=== PATIENT | male | born 1985 | race Caucasian/White ===

== ENCOUNTER 2019-07-09 06:37 | Day surgery (SDC) | payer BC ==
[2019-07-09] MEDS ORDERED: Sodium Chloride 0.9% 1,000 ML IV SCH (07:15)
[2019-07-09] MEDS ORDERED: Propofol 200 MG/20 ML SDV ONE ×2 (07:25→07:53)
[2019-07-09] MEDS ORDERED: Midazolam 1 MG/ML 2 ML SDV ONE (07:25)
[2019-07-09] MEDS ORDERED: fentaNYL 100 MCG/2 ML SDV ONE (07:25)
--- NOTE | 2019-07-09 10:06 | OR ---
DATE OF PROCEDURE: SURGEON: Jai Morris MD PROCEDURE: Colonoscopy with removal of transverse colon polyp using hot snare wire device. FINDINGS: Transverse colon polyp, approximately 5 mm, completely removed using cold biopsy forceps. COMPLICATIONS: None. PLUNGER SCOOP OPERATOR: None. PREOPERATIVE DIAGNOSIS: Abdominal pain. POSTOPERATIVE DIAGNOSIS: Abdominal pain. RISKS: Risks, benefits, alternatives, and limitations including, but not limited to infection, bleeding, and perforation were explained to the patient who wished to proceed. PROCEDURE IN DETAIL: The patient was placed in left lateral decubitus position. Digital rectal exam was performed without abnormality. Scope was introduced and advanced atraumatically to the ileocecal valve. Scope was brought back to the ascending, transverse, descending colon, and retroflexed. No evidence of old or new blood. The aforementioned polyp was identified and completely removed. No etiology for the abdominal pain. No abnormalities on retroflexion. No evidence of colitis. No diverticulosis. The patient tolerated the procedure well. Jai Morris MD /[id number]
--- NOTE | 2019-08-02 10:28 | OR ---
DATE OF PROCEDURE: 07/09/2019 SURGEON: Jai Morris MD ADDENDUM: Operative report on 07/09/2019. Of note, the transverse colon polyp, which was 5 mm was completely removed using hot snare wire device. This was completely removed and no abnormal bleeding was noted after this. Jai Morris MD /[id number]
== END 2019-07-09 09:30 | disposition home or self-care (01) ==
LOC: JP.SDS 06:37
PROVIDERS: ATTEND Surgery
DX: D12.3 Benign neoplasm of transverse colon (principal)
CPT/HCPCS: 45385; 88305; J2250; J2704; J3010; J7030

== ENCOUNTER 2022-04-07 21:16 | Emergency (ER) | payer BC, MEDICAID ==
[2022-04-07 22:23] LABS: ESTIMATED GFR 111 mL/min (>60)
[2022-04-07 22:24] LABS: TROPONIN I HIGH SENSITIVITY < 4.0 pg/mL (<=60.3)
== END 2022-04-07 22:54 | disposition home or self-care (01) ==
LOC: JP.ED 21:16
DX: R07.89 Other chest pain (principal)
CPT/HCPCS: 36415; 71046; 71046-26; 80053; 84484; 85025; 93005; 93010; 99282; 99285

== ENCOUNTER 2024-05-01 08:35 | Observation (INO) | payer MEDICAID ==
[2024-05-01 09:31] LABS: BASOPHILS ABSOLUTE AUTO 0.05 K/uL (0.00-0.10); BASOPHILS PERCENT AUTO 0.5 % (0.1-1.3); EOSINOPHILS ABSOLUTE AUTO 0.06 K/uL (0.00-0.40); EOSINOPHILS PERCENT AUTO 0.6 % (0.0-5.4); HEMATOCRIT 45.9 % (38.4-49.7); HEMOGLOBIN 15.4 g/dL (12.9-16.9); IMMATURE GRAN ABSOLUTE AUTO 0.04 K/uL (0.00-0.23); IMMATURE GRAN PERCENT AUTO 0.4 % (0.0-0.7); LYMPHOCYTES ABSOLUTE AUTO 1.15 K/uL (0.8-3.3); LYMPHOCYTES PERCENT AUTO 10.9 % (11.4-47.7); MEAN CORPUSCULAR HEMOGLOBIN 29.8 pg (31.6-35.5); MEAN CORPUSCULAR HGB CONC 33.6 g/dL (31.6-35.5); MONOCYTES ABSOLUTE AUTO 0.87 K/uL (0.20-0.90); MONOCYTES PERCENT AUTO 8.2 % (3.3-12.6); NEUTROPHILS PERCENT AUTO 79.4 % (40.0-78.1); PLATELET COUNT,PLT 266 K/uL (130-375); RED BLOOD CELL COUNT 5.16 M/uL (4.14-5.76); WHITE BLOOD CELL COUNT,WBC 10.6 K/uL (3.2-11.0)
[2024-05-01 09:39] LABS: APPEARANCE,URINE CLEAR (CLEAR); BILIRUBIN,URINE NEGATIVE (NEGATIVE); COLOR,URINE YELLOW (YELLOW); GLUCOSE,URINE NEGATIVE (NEGATIVE); KETONES,URINE 15 mg/dL (NEGATIVE); LEUKOCYTE ESTERASE,URINE NEGATIVE (NEGATIVE); NITRITE,URINE NEGATIVE (NEGATIVE); OCCULT BLOOD,URINE TRACE-INTACT (NEGATIVE); PH,URINE 5.5 (5.0-8.0); PROTEIN,URINE NEGATIVE (NEGATIVE); UROBILINOGEN,URINE 0.2 EU/dL (0.2-1.0)
[2024-05-01 09:45] LABS: AMORPHOUS SEDIMENT,URINE NOT SEEN; BACTERIA,URINE NOT SEEN; EPITHELIAL CELLS,URINE NOT SEEN; MUCUS,URINE MODERATE; RBC,URINE 0-5 (0-5); WBC,URINE 0-5 (0-5)
[2024-05-01 09:51] LABS: ALANINE AMINOTRANSFERASE,ALT 34 U/L (12-78); ALBUMIN 3.8 g/dL (3.4-5.0); ALKALINE PHOSPHATASE 74 U/L (46-116); ASPARTATE AMNIOTRANSFERASE,AST 20 U/L (15-37); BILIRUBIN TOTAL 1.6 mg/dL (0.2-1.0); BLOOD UREA NITROGEN,BUN 12 mg/dL (7-18); C-REACTIVE PROTEIN 4.02 mg/dL (<0.50); CALCIUM 8.7 mg/dL (8.5-10.1); CARBON DIOXIDE,CO2 26 mmol/L (21-32); CHLORIDE,CL 101 mmol/L (100-108); ESTIMATED GFR 97 mL/min (>60); GLUCOSE RANDOM 95 mg/dL (74-106); POTASSIUM,K 4.2 mmol/L (3.6-5.2); PROTEIN TOTAL,TP 7.7 g/dL (6.4-8.2); SODIUM,NA 135 mmol/L (140-148)
[2024-05-01 09:52] LABS: ANION GAP 12.2 mmol/L (5.0-14.0)
[2024-05-01 09:53] LABS: SEDIMENTATION RATE MANUAL 5 mm/hr (0-20)
[2024-05-01] MEDS: Ondansetron 4 MG/2 ML SDV IVPUSH ONE ×2 (10:04→19:25)
[2024-05-01] MEDS: Morphine 4 MG/ML Syringe IVPUSH ONE (10:04)
[2024-05-01] MEDS: Sodium Chloride 0.9% 1,000 ML IV ONE (10:04)
[2024-05-01] MEDS: Sodium Chloride 0.9% 80 ML IV ONE (13:54)
[2024-05-01] MEDS: Sodium Chloride 0.9% 10 ML Syringe FLUSH ONE (13:54)
[2024-05-01] MEDS: Iopamidol 612 MG/ML 500 ML Multipack Bottle PO ONE (13:54)
[2024-05-01] MEDS: Iopamidol 612 MG/ML 500 ML Multipack Bottle IV ONE (13:54)
[2024-05-01] MEDS ORDERED: Acetaminophen 325 MG Tab PO PRN (17:11)
[2024-05-01] MEDS ORDERED: Acetaminophen/oxyCODONE 325-5 MG Tab PO PRN (17:11)
[2024-05-01] MEDS ORDERED: Morphine 2 MG/ML SYRINGE IVPUSH PRN (17:14)
[2024-05-01] MEDS ORDERED: Lactated Ringers 1,000 ML IV SCH (17:15)
[2024-05-01] MEDS ORDERED: Neostigmine Methylsulfate 10 MG/10 ML MDV ONE (17:26)
[2024-05-01] MEDS ORDERED: Succinylcholine 200 MG/10 ML MDV ONE (17:26)
[2024-05-01] MEDS ORDERED: Rocuronium 50 MG/5 ML Vial ONE (17:26)
[2024-05-01] MEDS ORDERED: Glycopyrrolate 0.2 MG/ML 5 ML MDV ONE (17:26)
[2024-05-01] MEDS ORDERED: Dexamethasone 4 MG/ML SDV ONE (17:26)
[2024-05-01] MEDS ORDERED: Propofol 200 MG/20 ML SDV ONE (17:26)
[2024-05-01] MEDS ORDERED: Ondansetron 4 MG/2 ML SDV ONE (17:26)
[2024-05-01] MEDS ORDERED: fentaNYL 250 MCG/5 ML SDV ONE ×2 (17:27→17:49)
[2024-05-01] MEDS: Piperacillin/Tazobactam 4.5 GM in Sodium Chloride 0.9% 100 ML IV ONE (17:40)
[2024-05-01] MEDS: Heparin Sodium 5,000 Units/ML Vial SUBCUT ONE (18:05)
[2024-05-01] MEDS: Bupivacaine 0.5%/EPINEPHrine 1:200,000 50 ML MDV ONE (18:08)
[2024-05-01] MEDS ORDERED: Ketorolac 30 MG/ML SDV ONE (18:37)
[2024-05-01] MEDS: Ketorolac 30 MG/ML SDV IVPUSH SCH ×2 (20:56)
[2024-05-02] MEDS: Ondansetron 4 MG/2 ML SDV IVPUSH PRN (00:13)
[2024-05-02] MEDS ORDERED: Lisinopril 20 MG Tab PO SCH (08:00)
[2024-05-02] MEDS ORDERED: Rosuvastatin 5 MG Tab PO SCH (08:00)
[2024-05-02] MEDS: Tamsulosin 0.4 MG Cap.ER PO SCH (09:03)
[2024-05-02] MEDS ORDERED: Ketorolac 15 MG/ML SDV IVPUSH SCH (11:30)
== END 2024-05-02 09:10 | disposition home or self-care (01) ==
LOC: JP.ED 08:35 → JP.SDS 15:47 → JP.MS 17:08
PROVIDERS: ADMIT Surgery; ATTEND Surgery
DX: K35.30 Acute appendicitis with localized peritonitis, without perforation or gangrene (principal); I10 Essential (primary) hypertension; E78.00 Pure hypercholesterolemia, unspecified
CPT/HCPCS: 00840-QZ; 36415; 44970; 74177; 80053; 81001; 83690; 85025; 85651; 86140; 88304; 96361; 96374; 96375; 99222; 99285; 99285-25; J0330; J1100; J1596; J1644; J1885; J2270; J2405; J2543; J2704; J2710; J3010; J3490; Q9967